=== PATIENT | male | born 1950 | race Caucasian/White ===

== ENCOUNTER 2018-02-04 15:21 | Emergency (ER) | payer OTHER ==
[~2018-02-04] VITALS: Ht 172.7 cm; Wt 86.2 kg
[2018-02-04] MEDS ORDERED: TAMS0.4C (17:52)
[2018-02-04] MEDS ORDERED: BENADRYL25 MG (17:52)
[2018-02-04] MEDS ORDERED: ZESTRIL5 MG (17:53)
[2018-02-04] MEDS ORDERED: ZYRTEC10 M3 PO (17:59)
[2018-02-04] MEDS ORDERED: TAMS0.4C PO (17:59)
[2018-02-04] MEDS ORDERED: CIPRO500 MG PO (17:59)
[2018-02-04] MEDS ORDERED: MEDROLPACK PO (17:59)
== END 2018-02-04 18:18 | disposition home or self-care (01) ==
LOC: ER 15:21
DX: L50.8 Other urticaria (principal)

== ENCOUNTER 2018-02-04 16:25 | Outpatient (CLI) | payer OTHER ==
[2018-02-04] MEDS ORDERED: TAMS0.4C (17:52)
[2018-02-04] MEDS ORDERED: BENADRYL25 MG (17:52)
[2018-02-04] MEDS ORDERED: ZESTRIL5 MG (17:53)
[2018-02-04] MEDS ORDERED: CIPRO500 MG PO (17:59)
[2018-02-04] MEDS ORDERED: TAMS0.4C PO (17:59)
[2018-02-04] MEDS ORDERED: MEDROLPACK PO (17:59)
[2018-02-04] MEDS ORDERED: ZYRTEC10 M3 PO (17:59)
== END 2018-02-04 16:38 | disposition home or self-care (01) ==
LOC: RAD 16:25
DX: M99.01 Segmental and somatic dysfunction of cervical region (principal); M99.02 Segmental and somatic dysfunction of thoracic region; M99.03 Segmental and somatic dysfunction of lumbar region; M99.05 Segmental and somatic dysfunction of pelvic region

== ENCOUNTER 2018-03-22 14:33 | Outpatient (CLI) | payer OTHER ==
[~2018-03-22 14:33] MED LIST: BENADRYL25 MG; CIPRO500 MG PO; MEDROLPACK PO; TAMS0.4C; TAMS0.4C PO; ZESTRIL5 MG; ZYRTEC10 M3 PO
== END 2018-03-22 14:38 | disposition home or self-care (01) ==
LOC: RAD 14:33
DX: N20.2 Calculus of kidney with calculus of ureter (principal)